=== PATIENT | male | born 1970 ===

== ENCOUNTER 2017-11-01 10:54 | Outpatient (CLI) | payer OTHER | END 2017-11-01 10:56 | disposition home or self-care (01) | LOC: LAB 10:54 | DX: R31.0 Gross hematuria (principal); R97.20 Elevated prostate specific antigen [PSA] ==

== ENCOUNTER 2017-11-09 08:21 | Outpatient (CLI) | payer OTHER | END 2017-11-09 08:33 | disposition home or self-care (01) | LOC: TOM 08:21 | DX: R31.0 Gross hematuria (principal) ==